=== PATIENT | female | born 1975 | race Caucasian/White ===

== ENCOUNTER 2020-02-08 14:01 | Emergency (ER) | payer BC ==
[~2020-02-08] VITALS: Ht 165.1 cm; Wt 60.8 kg
[2020-02-08 14:10] VITALS: BP 112/77
--- NOTE | 2020-02-08 15:31 | PHYS DOC ---
Past History Past Medical History: Other Additional Past Medical Histor: ADHD Past Surgical History: , Other Additional Past Surgical Histo: RIGHT WRIST Alcohol Use: None General Adult EDM: Chief Complaint: RIB PAIN HPI: HPI: 44-year-old female presents with right anterior chest wall pain. There is p inpoint tenderness her anterior ribs just below the right breast. She states is been hurting for a couple of days. 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 She is wants to make sure is not a more serious injury. It is worse with deep breathing. Exercise does not make it worse. She denies fever chills or cough. Review of Systems: Review of Systems: Constitutional: Denies fever or chills Eyes: Denies change in visual acuity HENT: Denies nasal congestion or sore throat Respiratory: Denies cough or shortness of breath Cardiovascular: Denies chest pain or edema GI: Denies abdominal pain, nausea, vomiting, bloody stools or diarrhea : Denies dysuria Musculoskeletal: Right lateral chest wall pain Integument: Denies rash Neurologic: Denies headache, focal weakness or sensory changes Endocrine: Denies polyuria or polydipsia Lymphatic: Denies swollen glands Psychiatric: Denies depression or anxiety Heart Score: Risk Factors: Risk Factors: DM, Current or recent (<one month) smoker, HTN, HLP, family history of CAD, obesity. Risk Scores: Score 0 - 3: 2.5% MACE over next 6 weeks - Discharge Home Score 4 - 6: 20.3% MACE over next 6 weeks - Admit for Clinical Observation Score 7 - 10: 72.7% MACE over next 6 weeks - Early Invasive Strategies Allergies: Allergies: Allergies Coded Allergies Type Severity Reaction Last Updated Verified morphine Allergy Unknown 02/08/20 Yes Physical Exam: PE: Constitutional: Well developed, well nourished, no acute distress, non-toxic appearance. [] HENT: Normocephalic, atraumatic, bilateral external ears normal, oropharynx moist, no oral exudates, nose normal. [] Eyes: PERRLA, EOMI, conjunctiva normal, no discharge. [] Neck: Normal range of motion, no tenderness, supple, no stridor. [] Cardiovascular:Heart rate regular rhythm, no murmur [] Lungs & Thorax: Bilateral breath sounds clear to auscultation. Point tenderness over the insertion of the serratus anterior on the right about the level of T6 or 7.[] Abdomen: Bowel sounds normal, soft, no tenderness, no masses, no pulsatile masses. [] Skin: Warm, dry, no erythema, no rash. [] Back: No tenderness, no CVA tenderness. [] Extremities: No tenderness, no cyanosis, no clubbing, ROM intact, no edema. [] Neurologic: Alert and oriented X 3, normal motor function, normal sensory function, no focal deficits noted. [] Psychologic: Affect normal, judgement normal, mood normal. [] Current Patient Data: Vital Signs: Vital Signs Date Time Temp Pulse Resp B/P (MAP) Pulse Ox O2 Delivery O2 Flow Rate FiO2 02/08/20 14:10 97.9 99 20 112/77 (89) 99 Room Air EKG: EKG: [] Radiology/Procedures: Radiology/Procedures: [] Course & Med Decision Making: Course & Med Decision Making Pertinent Labs and Imaging studies reviewed. (See chart for details) The patient's x-rays are unremarkable. I believe that she has strained or partially torn the serratus anterior on the right. I have advised rest and [id number] ibuprofen. She states verbal understanding. She is stable for discharge at this time. [] Lance Disclaimer: Lance Disclaimer: This electronic medical record was generated, in whole or in part, using a voice recognition dictation system. Departure Departure: Disposition: 01 HOME/RESIDENCE PRIOR TO ADM Condition: STABLE Referrals: HOWARD LOPEZ DO (PCP) Justification of Admission: Justification of Admission: Justification of Admission Dx: N/A CRISTINA MCKENZIE DO Feb 08, 2020 15:31
--- NOTE | 2020-02-08 16:12 | RAD ---
EXAM: Frontal chest with 3 view right rib series. HISTORY: Right rib pain. COMPARISON: None. FINDINGS: There are no confluent infiltrates. There is no pneumothorax or pleural effusion. The heart is not enlarged. There are no displaced right rib fractures. IMPRESSION: 1. No displaced right rib fractures. Electronically signed by: Tico Ackerman MD (02/08/2020 4:09 PM) [facility]
== END 2020-02-08 15:35 | disposition home or self-care (01) ==
LOC: ER 14:01
DX: R07.89 Other chest pain (principal); F90.9 Attention-deficit hyperactivity disorder, unspecified type; Z88.5 Allergy status to narcotic agent
CPT/HCPCS: 71101; 99283